=== PATIENT | male | born 1940 | race Caucasian/White ===

== ENCOUNTER 2018-05-15 06:23 | Day surgery (SDC) | payer MEDICARE, OTHER ==
[~2018-05-15 06:23] MED LIST: Lactated Ringers 1,000 ML IV ONE
[2018-05-15] MEDS ORDERED: Versed 2 MG/2 ML Injection IV ONE (06:24)
[2018-05-15] MEDS ORDERED: DIPRIVAN 200 MG/20 ML IV ONE (06:24)
[2018-05-15] MEDS ORDERED: Lactated Ringers 1,000 ML IV ONE ×2 (06:40→09:25)
[2018-05-15] MEDS ORDERED: TETRACAINE 0.5% STERI-UNIT SOL OP ONE ×2 (08:00)
[2018-05-15] MEDS ORDERED: Lactated Ringers 1,000 ML IV SCH (08:00)
[2018-05-15] MEDS ORDERED: Ak-Dilate OPHTHALMIC*** 0.71 ML, Cyclogyl 1% OPHTH SOL 5 ML 0.71 ML, GATIFLOXACIN 0.5% ... OP ONE ×4 (08:00)
[2018-05-15] MEDS ORDERED: Epinephrine Preservative Free 1 MG/ML INTRAOP ONE (09:00)
[2018-05-15] MEDS ORDERED: BETADINE 5% OPHTHALMIC 30 ML OP ONE (09:00)
[2018-05-15] MEDS ORDERED: LIDOCAINE HCL 1% AMPUL 5 ML IJ ONE (09:00)
[2018-05-15] MEDS ORDERED: BSS 500 ML, Fortaz/Tazicef 1 GM** 0.2 G IO ONE ×2 (09:00)
[2018-05-15 10:27] VITALS: BP 109/79; PULSE 69; O2SAT 99
[2018-05-15] MEDS ORDERED: ACETAZOLAMIDE 250 MG TABLET PO ONE (11:00)
[2018-05-15] MEDS ORDERED: Zofran 4 MG/2 ML VIAL IV PRN (11:00)
--- NOTE | 2018-05-16 08:59 | OP ---
DATE/TIME OF OPERATION: 05/15/2018 0916 TIME DICTATED: 1246 PREOPERATIVE DIAGNOSIS: Senile cataract of left eye. POSTOPERATIVE DIAGNOSIS: Senile cataract of left eye. SURGEON: Sheree Marcelo MD TEAM COORDINATOR: NONE OPERATION: Cataract extraction of left eye with an intraocular lens implant STANDARD __X___ COMPLEX ANESTHESIA: __X____ Monitored anesthesia care in combination with topical and intra-cameral anesthesia (because of the established specific risk of reflux, arrhythmias, or an anxiety attack associated with ocular manipulation as well as difficulty of the class a regional drivers to manage such potentially catastrophic events while simultaneously attempting to complete the surgical procedure, it was deemed necessary for the patient's safety to have an anesthesiologist or a nurse mrp controller present during the procedure whenever possible. The anesthesiologist or the nurse mrp controller was utilized to monitor and regulate the intravenous sedation of the patient, so the patient was cooperative, relaxed, and comfortable). Topical anesthesia using Tetracaine eye drops together with intra cameral anesthesia using Lidocaine 1% MPF. The nurse was utilized to monitor the patient. ANESTHESIA PROVIDER: Nikita Lewis CRNA. COMPLICATIONS: None. BLOOD LOSS: None INDICATIONS: The patient is undergoing cataract surgery in the hopes of eliminating the visual complaints and difficulty. PROCEDURE: After arriving at the facility's outpatient surgery area, an IV was started; the patient was given 5 mg of p.o. Versed. (If an anesthesia provider was not monitoring the patient) The patient was then given topical anesthetic Tetracaine eye drops. A cotton pellet was soaked into a solution of a combination of Zymaxid 0.5%, Wero-Synephrine 2.5% and Ocufen (other drops might have been substituted referenced in the patient's record). The pellet was inserted by the RN into the lower conjunctival cul-de-sac with a sterile forceps and left for 20 minutes. The pellet was then removed by the RN with a sterile forceps before taking the patient to the operating room. The preoperative area nurse identified the patient and marked the correct eye to be operated on. I identified the correct eye to be operated on and marked it appropriately in the outpatient surgery area. The patient was then taken into the operating room. Tetracaine eye drops were installed again in the correct eye. The eyelids and the lashes and the lid margins were scrubbed with Betadine solution. One drop of the diluted Betadine solution was placed in the conjunctival cul-de-sac for 45 seconds and then was irrigated. A drop of Tetracaine Gel was placed in the conjunctival cul-de-sac. The patient's forehead was taped to secure it during the procedure. The patient was monitored. The patient was then draped in the usual way for this procedure. An eye speculum was used to separate the eyelids. The eye was then fixated and a temporal 2.5 mm incision was made in the clear cornea temporally at the limbus. Through the incision, 0.25 cc of 1% non-preserved lidocaine was injected into the anterior chamber for intracameral anesthesia. The anterior chamber was then filled with viscoelastic. The pupil was small. I felt that it would be safer to mechanically dilate the pupil. A Malyugin ring was used at this point which dilated the pupil. That was removed at the end of the procedure prior to aspiration of the viscoelastic from the anterior chamber and posterior to the intraocular lens implant. The cataract had a great amount of cortical changes. That rendered seeing the anterior capsule difficult for a safe performance of an anterior capsulotomy. I injected an air bubble into the anterior chamber. I then injected 1 ML of vision blue solution into the anterior chamber. The vision blue solution was irrigated from the anterior chamber after 30 seconds. The anterior capsule was stained which facilitated performing the anterior capsulotomy safely. After that was completed, a cystotome was introduced into the anterior chamber and a round anterior capsulotomy was performed. The capsule was removed by a forceps. Hydrodissection was next carried utilizing a 25-gauge cannula and balanced salt solution to delineate the cortical material from the capsule and the nucleus from the cortical material. The nucleus was rotated freely into the capsular bag with no difficulty. The phaco tip of the [employer] Phacoemulsifier was introduced into the anterior chamber and two grooves were made into the nucleus 90 degrees apart. Using two spatulas resulted into the nucleus being fractured into four quadrants. The phaco tip was then used to remove each quadrant of the nucleus. Viscoelastic was used during this process to protect the corneal endothelium. Once the entire nucleus was removed, the phaco tip then was removed and the irrigation tip was introduced into the eye and the cortex was removed. The posterior capsule was polished. It was noticed that there was a tear into the posterior capsule with few vitreous strands into the pupil plan. An anterior vitrectomy was performed. A 22.00 diopter, [id number], posterior chamber lens implant, was inspected and found to be grossly normal. The implant was inserted into the implant injector cartridge; Viscoelastic again was introduced into the anterior chamber, which filled the capsular bag. The implant injector's cartridge tip was placed at the limbal wound and the posterior chamber implant was released into the capsular bag and rotated appropriately. The implant was found to be into the capsular bag and it was centered. __X___ 0.2 ml of Tri-Moxi was introduced via 27 gauge cannula into the vitreous cavity through the ciliary processes. Viscoelastic was aspirated from the anterior chamber and posterior to the intraocular lens implant from the capsular bag using the irrigating tip. The anterior chamber was irrigated and filled with 5 cc antibiotic solution (500 cc of BSS plus 2 ml of Fortaz 100 mg/ml) ( if patient was not allergic to the medication). The lips of the corneal incision were hydrated using BSS solution. The anterior chamber was checked and found to be water tight. One drop each of antibiotic, steroid and NSAID drops (refer to chart for drops used) were placed in the conjunctival cul-de-sac of the operated eye. Patient tolerated the procedure quite well and left the operating room in satisfactory condition. DISCHARGE SUMMARY: The patient was released in stable condition. The patient and those with the patient were given an instruction sheet as of how to care for the eye after surgery as well as counseling on any abnormal laboratory studies by the postoperative RN. The patient was also given an appointment card for follow-up in the office and is to call immediately for any difficulties including but not limited to pain in the eye, decreased vision, discharge from the eye, headache and or fever. DISCHARGE DIAGNOSIS: Pseudophakia of left eye
== END 2018-05-15 10:43 | disposition home or self-care (01) ==
LOC: SDC 06:23
PROVIDERS: ATTEND Ophthalmology
DX: H25.9 Unspecified age-related cataract (principal); H04.129 Dry eye syndrome of unspecified lacrimal gland; K21.9 Gastro-esophageal reflux disease without esophagitis; H40.1190 Primary open-angle glaucoma, unspecified eye, stage unspecified; Z79.899 Other long term (current) drug therapy
CPT/HCPCS: 66984; C1780; 99100; J0171; J2250; J2704; A9270-GY

== ENCOUNTER 2020-07-19 17:11 | Observation (INO) | payer MEDICARE, OTHER ==
--- NOTE | 2020-07-19 17:15 | ERPHSYRPT ---
- History of Present Illness Time Seen by Provider: 07/19/20 17:14 Historian: patient Exam Limitations: no limitations Physician History: The patient is an 80-year-old male with a past medical history significant for hypertension and diabetes mellitus presents with a chief complaint of chest pain. Onset was around 12:00 PM this afternoon. He states he has had episodes of chest pain off and on for the past 1 to 2 months that seem to be correlated with eating food and sometimes will just come on spontaneously and resolve on their own spontaneously. He reportedly discussed initiating lunch when he fell with a squeeze sensation in his mid sternum that radiated to the middle of his back. The pain is constant mild and was reportedly not associated with shortness of b reath, diaphoresis, nausea, vomiting, paler dizziness or lightheadedness. He reportedly has not followed up with a italian tutor or primary care provider for this pain nor has he had any outpatient testing for coronary artery disease. Timing/Duration: today Quality: pressure, tightness Location: substernal Chest Pain Radiation: back Severity of Pain-Max: mild Severity of Pain-Current: mild Associated Symptoms: No nausea, No vomiting, No palpitations, No heartburn, No abdominal pain, No diaphoresis, No syncope Nitro Today/Relief: no nitro taken today Aspirin Treatment Today: no aspirin today Allergies/Adverse Reactions: latex Adverse Reaction (Intermediate, Verified 07/19/20 17:20) Swelling Home Medications: Albuterol Sulfate [Ventolin Hfa] 2 puffs IH Q4H PRN PRN 05/01/18 [History] Cetirizine HCl [Zyrtec] 1 tab PO DAILY 05/01/18 [History] Triamterene/Hydrochlorothiazid [Triamterene-Hctz 37.5-25 mg Cp] 1 tab PO DAILY 05/01/18 [History] Aspirin 81 mg PO BID 05/11/18 [History] Hydrocodone/Acetaminophen [[place]et[place] 7.5-325 Tablet] 1 each PO Q4H PRN PRN 05/11/18 [History] Insulin NPH Human Isophane [Humulin N] 100 unit SQ DAILY 05/11/18 [History] Insulin Regular, Human [Novolin R] 12 unit IJ BIDAC 05/11/18 [History] Ondansetron HCl [Zofran] 8 mg PO Q8HPRN PRN 05/11/18 [History] Oxycodone HCl/Acetaminophen [Percocet 7.5-325 mg Tablet] 1 each PO Q4HPRN PRN 05/11/18 [History] Sertraline HCl [Zoloft] 200 mg PO DAILY 05/11/18 [History] Tamsulosin HCl 0.4 mg [Flomax 0.4 MG] 0.4 mg PO DAILY 05/11/18 [History] raNITIdine HCL [Ranitidine HCl] 150 mg PO DAILY 05/11/18 [History] Travel Risk - International Travel Have you traveled outside of the country in past 3 weeks: No - Coronavirus Screening Are you exhibiting any of the following symptoms?: No - Review of Systems Constitutional: No Symptoms Eyes: No Symptoms Ears, Nose, & Throat: No Symptoms Cardiac: Chest Pain Abdominal/Gastrointestinal: No Symptoms, No Nausea, No Vomiting Genitourinary Symptoms: No Symptoms Musculoskeletal: No Symptoms Skin: No Symptoms Neurological: No Symptoms Psychological: No Symptoms Endocrine: No Symptoms Hematologic/Lymphatic: No Symptoms Immunological/Allergic: No Symptoms - Past Medical History Pertinent Past Medical History: No Neurological History: No Pertinent History ENT History: Cataracts Cardiac History: No Pertinent History Respiratory History: Bronchitis Endocrine Medical History: Diabetes Type II Musculoskeletal History: No Pertinent History GI Medical History: No Pertinent History History: No Pertinent History Psycho-Social History: No Pertinent History Male Reproductive Disorders: Other - Past Surgical History Past Surgical History: Yes Neuro Surgical History: No Pertinent History Cardiac: No Pertinent History Respiratory: No Pertinent History Gastrointestinal: Hernia Repair Genitourinary: No Pertinent History Musculoskeletal: Joint Replacement, Orthopedic Surgery Male Surgical History: Testicular Surgery Other Surgical History: 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, carpal tunnel bilaterally repaired, testical removed related to hernia surgery - Social History Smoking Status: Never smoker Exposure to second hand smoke: No Drug Use: none - Nursing Vital Signs Nursing Vital Signs: Initial Vital Signs Temperature 98.0 F 07/19/20 17:12 Pulse Rate 68 07/19/20 17:12 Respiratory Rate 17 07/19/20 17:12 Blood Pressure 134/62 07/19/20 17:12 O2 Sat by Pulse Oximetry 96 07/19/20 17:12 Pain Scale Pain Intensity 5 - Physical Exam General Appearance: no apparent distress, alert, obese Eye Exam: PERRL/EOMI, eyes nml inspection, No scleral icterus, No pale conjunctivae Ears, Nose, Throat Exam: normal ENT inspection, pharynx normal, moist mucous membranes, No pharyngeal erythema, No tonsillar exudate Neck Exam: normal inspection, non-tender, supple Respiratory Exam: normal breath sounds, lungs clear, No respiratory distress Cardiovascular Exam: regular rate/rhythm, normal heart sounds, normal peripheral pulses, No capillary refill <2 sec, No edema, No pulse deficit Gastrointestinal/Abdomen Exam: soft, distention, No tenderness, No mass, No guarding Male Genitalia Exam: normal genitalia Rectal Exam: deferred Back Exam: normal inspection Extremity Exam: normal inspection Neurologic Exam: alert, oriented x 3, cooperative Skin Exam: normal color, warm, dry, No rash, No petechiae, No jaundice Lymphatic Exam: adenopathy SpO2 Interpretation: normal O2 Delivery: Room Air - Course Nursing assessment & vital signs reviewed: Yes EKG Interpreted by Me: RATE, Left [place] Deviation, Other (No evidence of STEMI or acute myocardial ischemia pattern. Sinus rhythm, vent rate 73 bpm, NE interval 173 ms, QRS duration 97 ms, QT/QTc 372/412 ms) - Radiology Exams Chest X-ray Interpretation: Interpreted by me, Reviewed by me, Negative (Awaiting formal radiology review) Ordered Tests: Active Orders 24 hr Category Date Time Status Bedrest with BRP/BSC ROUTINE Activity 07/19/20 19:05 Active [employer] Transactions Attorney STAT Care 07/19/20 17:14 Active Code Status Order ROUTINE Care 07/19/20 19:05 Active EKG-ER Only STAT Care 07/19/20 17:14 Active IV Care Q6H Care 07/19/20 19:05 Active IV Insertion STAT Care 07/19/20 17:14 Active Implement Chest Pain Pathway ROUTINE Care 07/19/20 19:[address] in Observation ROUTINE Care 07/19/20 19:05 Active Pulse Oximetry (ED) STAT Care 07/19/20 17:14 Active Eligio Gómez, Apply ROUTINE Care 07/19/20 19:05 Active Telemetry q4h Care 07/19/20 19:05 Active Weight,Daily 0600 Care 07/19/20 19:05 Active Low Sodium (1.5-2gram Sodium) Diet 07/20/20 Breakfast Active CHEST 2 VIEWS (PA AND LAT) DAILY Exams 07/20/20 06:00 Ordered CHEST 2 VIEWS (PA AND LAT) Stat Exams 07/19/20 18:09 Taken BMP Stat Lab 07/19/20 17:28 Completed CBC AM.LAB Lab 07/20/20 04:00 Ordered CBC W DIFF Stat Lab 07/19/20 17:28 Completed LIPID PROFILE AM.LAB Lab 07/20/20 04:00 Ordered NT PRO BNP Stat Lab 07/19/20 17:28 Completed TROPONIN Q3H Lab 07/19/20 17:28 Completed TROPONIN Q3H Lab 07/19/20 20:20 Received TROPONIN Q3H Lab 07/19/20 23:15 Ordered TROPONIN Q3H Lab 07/20/20 02:15 Ordered TROPONIN Q3H Lab 07/20/20 05:15 Ordered EKG Q8HX2,QAMX3,PRN RT 07/19/20 19:05 Active Pulse Oximetry Q4H RT 07/19/20 19:05 Active Medication Summary Generic Name Dose Route Start Last Admin Trade Name Freq PRN Reason Stop Dose Admin Acetaminophen 650 mg 07/19/20 19:05 Tylenol 325 Mg PO 08/18/20 19:04 Q4H PRN PRN PAIN AND/OR FEVER Aspirin 81 mg 07/20/20 10:00 Baby Aspirin 81 Mg Chew PO 08/19/20 09:59 QAM COLBY Nitroglycerin 1 gm 07/19/20 22:00 07/19/20 18:56 Nitro-Bid 2% Ud Packets TOP 08/18/20 21:59 1 gm Q12HT COLBY Administration Nitroglycerin 1 gm 07/19/20 22:00 Nitro-Bid 2% Ud Packets TOP 08/18/20 21:59 Q8HT COLBY Ondansetron HCl 4 mg 07/19/20 19:05 Zofran 4 Mg/2 Ml Vial IV 08/18/20 19:04 Q4H PRN PRN NAUSEA/VOMITING Senna/Docusate Sodium 2 udtab 07/19/20 19:05 Senokot-S Tablet PO 08/18/20 19:04 BID PRN PRN CONSTIPATION Discontinued Medications Generic Name Dose Route Start Last Admin Trade Name Freq PRN Reason Stop Dose Admin Aspirin 324 mg 07/19/20 17:39 07/19/20 17:58 Baby Aspirin 81 Mg Chew PO 07/19/20 17:40 324 mg STAT ONE Administration Aspirin Confirm 07/19/20 17:57 Baby Aspirin 81 Mg Chew Administered 07/19/20 17:58 Dose 324 mg .ROUTE .STK-MED ONE Nitroglycerin 0.4 mg 07/19/20 17:39 07/19/20 18:00 Nitrostat 0.4 Mg (Ed) SL 07/19/20 17:40 0.4 mg STAT ONE Administration Nitroglycerin Confirm 07/19/20 17:57 Nitrostat 0.4 Mg (Ed) Administered 07/19/20 17:58 Dose 0.4 mg SL .STK-MED ONE Lab/Rad Data: Laboratory Result Diagrams 07/19/20 17:28 07/19/20 17:28 Laboratory Results 07/19/20 07/19/20 07/19/20 Range/Units 17:28 17:28 17:28 WBC 10.2 (4.0-10.5) K/mm3 RBC 4.16 (4.1-5.6) M/mm3 Hgb 13.1 (12.5-18.0) gm/dl Hct 39.5 L (42-50) % MCV 95.0 (78-100) fl MCH 31.5 (26-32) pg MCHC 33.2 (32-36) g/dl RDW 13.4 (11.5-14.0) % Plt Count 160 (150-450) K/mm3 MPV 9.4 (7.5-11.0) fl Gran % 78.4 H (36.0-66.0) % Eos # (Auto) 0.13 (0-0.5) Absolute Lymphs (auto) 1.45 (1.0-4.6) Absolute Monos (auto) 0.60 (0.0-1.3) Lymphocytes % 14.2 L (24.0-44.0) % Monocytes % 5.9 (0.0-12.0) % Eosinophils % 1.3 (0.00-5.0) % Basophils % 0.2 (0.0-0.4) % Absolute Granulocytes 8.03 H (1.4-6.9) Basophils # 0.02 (0-0.4) Sodium 137 (137-145) mmol/L Potassium 4.3 (3.5-5.1) mmol/L Chloride 105 (98-107) mmol/L Carbon Dioxide 25 (22-30) mmol/L Anion Gap 11.4 (5-15) MEQ/L BUN 25 H (9-20) mg/dL Creatinine 0.84 (0.66-1.25) mg/dL Estimated GFR > 60.0 ML/MIN Glucose 106 (74-106) mg/dL Calcium 9.0 (8.4-10.2) mg/dL Troponin I < 0.012 (0.000-0.034) ng/mL NT-Pro-B Natriuret Pep 52.5 (0-1800) pg/mL - Progress Progress: improved Air Movement: good Progress Note: 07/19/20 19:[address] Ledezma and discussed the case with him. He agreed to admit for CP r/o requested cardiolyte stress test for the morning, serial cardiac enzymes, CBC, BMP, and CXR for the morning. 07/19/20 20:36 Nontoxic in appearance. The patient presents with a chief complaint of chest pain. His pain was relieved with a single nitroglycerin and he received 324 mg of baby aspirin in the emergency department. Nitroglycerin paste was subsequently administered. Labs to include cardiac markers were relatively benign and his chest x-ray is reviewed and showed no evidence of pneumonia, pneumothorax, pleural effusion but appeared to have some mild cardiomegaly but currently awaiting formal radiology review. I have a low suspicion for PE at this time and therefore d-dimer in addition to a CTA was deferred. His chest pain is concerning for potential angina but also in the differential includes GERD, esophageal spasm, or hiatal hernia. Given that the patient has had no c ardiac work-up in the past to my knowledge she will be admitted to the hospital to undergo serial troponins in addition to a Cardiolite stress test per Dr. Ledezma's instructions. Patient remained hemodynamically stable in the emergency department and chest pain-free by the time he went to the floor. Discussed with : Chandni - Departure Departure Disposition: Observation Clinical Impression: Chest pain Condition: Stable Critical Care Time: No Referrals: AMPARO LOMBARDO MD [Primary Care Provider] -
[2020-07-19 17:31] LABS: Absolute Neutrophil Ct (ANC) 8.03 (1.4-6.9); BASOPHIL % 0.2 % (0.0-0.4); Basophil (Absolute #) 0.02 (0-0.4); Eosinophil % 1.3 % (0.00-5.0); Eosinophil (Absolute #) 0.13 (0-0.5); Hematocrit 39.5 % (42-50); Hemoglobin 13.1 gm/dl (12.5-18.0); Lymphocyte (Absolute #) 1.45 (1.0-4.6); Lymphocytes % 14.2 % (24.0-44.0); Mean Corpuscular Hemoglobin 31.5 pg (26-32); Mean Corpuscular Hgb Concent. 33.2 g/dl (32-36); Mean Platelet Volume 9.4 fl (7.5-11.0); Monocytes % 5.9 % (0.0-12.0); Neutrophil % 78.4 % (36.0-66.0); Platelet Count 160 K/mm3 (150-450); Red Blood Count 4.16 M/mm3 (4.1-5.6); Red Cell Distribution Width 13.4 % (11.5-14.0); White Blood Count 10.2 K/mm3 (4.0-10.5)
[2020-07-19] MEDS ORDERED: Nitrostat 0.4 MG (ED) SL ONE ×2 (17:39→17:57)
[2020-07-19] MEDS ORDERED: BABY ASPIRIN 81 MG CHEW PO ONE (17:39)
[2020-07-19 17:55] LABS: ANION GAP 11.4 MEQ/L (5-15); BLOOD UREA NITROGEN 25 mg/dL (9-20); CHLORIDE 105 mmol/L (98-107); Carbon Dioxide 25 mmol/L (22-30); Creatinine 1 0.84 mg/dL (0.66-1.25); EST GLOMERULAR FILTRATION RATE > 60.0 ML/MIN; Glucose 106 mg/dL (74-106); NT PRO BNP 52.5 pg/mL (0-1800); Potassium 4.3 mmol/L (3.5-5.1); SODIUM 137 mmol/L (137-145)
[2020-07-19] MEDS ORDERED: BABY ASPIRIN 81 MG CHEW ONE (17:57)
[2020-07-19] MEDS: NITRO-BID 2% UD PACKETS TOP SCH ×3 (18:56→22:52)
[2020-07-19] MEDS ORDERED: NITRO-BID 2% UD PACKETS ONE (18:56)
[2020-07-19] MEDS ORDERED: TYLENOL 325 MG PO PRN (19:05)
[2020-07-19] MEDS ORDERED: Senokot-S Tablet PO PRN (19:05)
[2020-07-19] MEDS ORDERED: Zofran 4 MG/2 ML VIAL IV PRN (19:05)
[2020-07-19] MEDS ORDERED: Lantus Insulin SQ SCH (22:15)
[2020-07-19] MEDS ORDERED: ZOFRAN ODT 4 MG PO PRN (22:16)
[2020-07-19] MEDS ORDERED: PERCOCET TABLET 5/325MG PO PRN (22:18)
[2020-07-20 05:44] LABS: Hemoglobin 13.1 gm/dl (12.5-18.0); Mean Cell Volume 96.9 fl (78-100); Mean Platelet Volume 9.7 fl (7.5-11.0); Platelet Count 180 K/mm3 (150-450); Red Blood Count 4.23 M/mm3 (4.1-5.6); Red Cell Distribution Width 13.6 % (11.5-14.0)
[2020-07-20 06:11] LABS: ANION GAP 9.1 MEQ/L (5-15); BLOOD UREA NITROGEN 22 mg/dL (9-20); CHLORIDE 107 mmol/L (98-107); Calcium 8.9 mg/dL (8.4-10.2); Carbon Dioxide 26 mmol/L (22-30); Cholesterol 145 mg/dL (50-200); Creatinine 1 0.85 mg/dL (0.66-1.25); EST GLOMERULAR FILTRATION RATE > 60.0 ML/MIN; Glucose 91 mg/dL (74-106); HDL CHOLESTEROL 27 mg/dL (40-60); LDL, DIRECT 95 mg/dL (30-100); Potassium 4.2 mmol/L (3.5-5.1); Risk Ratio 5.4; SODIUM 138 mmol/L (137-145); TRIGLYCERIDE 176 mg/dL (30-150)
[2020-07-20] MEDS: NITRO-BID 2% UD PACKETS TOP SCH (07:24)
--- NOTE | 2020-07-20 09:08 | XRAY ---
Indication: Chest pain. Comparison: None PA/lateral chest hyperinflated and clear with incidental right base calcified granuloma. Heart is not enlarged. Bony thorax intact with mild osteopenia and degenerative flowing osteophytes throughout the spine. Impression: Nonacute chest with chronic features.
--- NOTE | 2020-07-20 09:08 | XRAY ---
Indication: Chest pain. Comparison: One day earlier. PA/lateral chest unchanged again hyperinflated and clear with incidental right lung calcified granuloma. Heart and mediastinal structures within normal limits. No new/acute findings.
[2020-07-20] MEDS ORDERED: BABY ASPIRIN 81 MG CHEW PO SCH (10:00)
[2020-07-20] MEDS ORDERED: ECOTRIN 81 MG PO SCH (10:00)
--- NOTE | 2020-07-20 11:28 | PCM.SSS ---
History of Present Illness - Chief Complaint Chief Complaint: chest pain Date: 07/20/20 History of Present Illness: is a 80 year old male, presented to ER with complaints of intermittent chest pain and reflux for the past several months, he notes he has been undergoing evaluation with his pcp in [place] for a few months at this time, noting holter moniter, ECHO and Chemical stress cardiolyte all in the past few months, he reports he has not seen cardiology but has no desire to do so at this time. - Review of Systems Constitutional: No Fever, No Chills Eyes: No Symptoms Ears, Nose, & Throat: No Symptoms Respiratory: No Cough, No Short Of Breath Cardiac: Chest Pain (not at this time), No Edema, No Syncope Abdominal/Gastrointestinal: No Abdominal Pain, No Nausea, No Vomiting, No Diar jc Genitourinary Symptoms: No Dysuria Musculoskeletal: No Back Pain, No Neck Pain Skin: No Rash Neurological: No Dizziness, No Focal Weakness, No Sensory Changes Psychological: No Symptoms Endocrine: No Symptoms Hematologic/Lymphatic: No Symptoms Immunological/Allergic: No Symptoms Medications & Allergies Home Medications: Home Medication List Albuterol Sulfate [Ventolin Hfa] 2 puffs IH Q4H PRN PRN 05/01/18 [History Confirmed 07/19/20] Cetirizine HCl [Zyrtec] 1 tab PO DAILY 05/01/18 [History Confirmed 07/19/20] Triamterene/Hydrochlorothiazid [Triamterene-Hctz 37.5-25 mg Cp] 1 tab PO DAILY 05/01/18 [History Confirmed 07/19/20] Aspirin 81 mg PO DAILY 05/11/18 [History Confirmed 07/19/20] Insulin Regular, Human [Novolin R] 5 unit IJ BIDAC 05/11/18 [History Confirmed 07/19/20] Ondansetron HCl [Zofran] 8 mg PO Q8HPRN PRN 05/11/18 [History Confirmed 07/19/20] Oxycodone HCl/Acetaminophen [Percocet 7.5-325 mg Tablet] 7.5 each PO Q4HPRN PRN 05/11/18 [History Confirmed 07/19/20] Sertraline HCl [Zoloft] 200 mg PO DAILY 05/11/18 [History Confirmed 07/19/20] Tamsulosin HCl 0.4 mg [Flomax 0.4 MG] 0.4 mg PO DAILY 05/11/18 [History Confirmed 07/19/20] Insulin Glargine,Hum.rec.anlog [Lantus] 70 unit SQ HS 07/19/20 [History Confirmed 07/19/20] Allergies/Adverse Reactions: Allergies Allergy/AdvReac Type Severity Reaction Status Date / Time latex AdvReac Intermediate Swelling Verified 07/19/20 17:20 - Past Medical History Past Medical History: No Neurological History: No Pertinent History ENT History: Cataracts Cardiac History: No Pertinent History Respiratory History: Bronchitis Endocrine Medical History: Diabetes Type II Musculoskelatal History: No Pertinent History GI Medical History: No Pertinent History History: No Pertinent History Pyscho-Social History: No Pertinent History Male Reproductive Disorders: Other - Past Surgical History Past Surgical History: Yes Neuro Surgical History: No Pertinent History Cardiac History: No Pertinent History Respiratory Surgery: No Pertinent History GI Surgical History: Hernia Repair Genitourinary Surgical Hx: No Pertinent History Musculskeletal Surgical Hx: Joint Replacement, Orthopedic Surgery Male Surgical History: Testicular Surgery Other Surgical History: 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, carpal tunnel bilaterally repaired, testical removed related to hernia surgery - Social History Smoking Status: Never smoker Exposure to second hand smoke: No Alcohol: None Drug Use: none - Physical Exam Vital Signs: Vital Signs - 24 hr Temp Pulse Resp BP Pulse Ox 07/20/20 10:53 94 L 07/20/20 10:34 92 L 07/20/20 10:30 94 L 07/20/20 08:00 97.6 F 67 15 113/57 95 07/20/20 06:44 95 07/20/20 04:00 98.1 F 67 16 128/71 95 07/20/20 00:00 98.6 F 62 16 137/62 96 07/19/20 23:15 97 07/19/20 22:09 98.1 F 66 15 121/73 97 07/19/20 20:57 65 15 107/60 97 07/19/20 19:05 61 16 112/53 95 07/19/20 18:16 67 14 112/53 95 07/19/20 17:27 95 07/19/20 17:12 98.0 F 68 17 134/62 96 General Appearance: no apparent distress, alert Neurologic Exam: alert, oriented x 3, cooperative, normal mood/affect, nml cerebellar function, nml station & gait, sensation nml, No motor deficits Eye Exam: PERRL/EOMI, eyes nml inspection Ears, Nose, Throat Exam: normal ENT inspection, TMs normal, pharynx normal, moist mucous membranes Neck Exam: normal inspection, non-tender, supple, full range of motion Respiratory Exam: normal breath sounds, lungs clear, No respiratory distress Cardiovascular Exam: regular rate/rhythm, normal heart sounds, normal peripheral pulses Gastrointestinal/Abdomen Exam: soft, normal bowel sounds, No tenderness, No mass Back Exam: normal inspection, normal range of motion, No CVA tenderness, No vertebral tenderness Extremity Exam: normal inspection, normal range of motion, pelvis stable Skin Exam: normal color, warm, dry, No rash Lymphatic Exam: No adenopathy Results - Labs Lab/Micro Results: Accuchecks Date 07/20/20 Time 07:30 Accucheck Value: 91 Lab Results-Last 24 Hours 07/19/20 07/19/20 07/19/20 Range/Units 11:10 17:28 17:28 WBC 10.2 (4.0-10.5) K/mm3 RBC 4.16 (4.1-5.6) M/mm3 Hgb 13.1 (12.5-18.0) gm/dl Hct 39.5 L (42-50) % MCV 95.0 (78-100) fl MCH 31.5 (26-32) pg MCHC 33.2 (32-36) g/dl RDW 13.4 (11.5-14.0) % Plt Count 160 (150-450) K/mm3 MPV 9.4 (7.5-11.0) fl Gran % 78.4 H (36.0-66.0) % Eos # (Auto) 0.13 (0-0.5) Absolute Lymphs (auto) 1.45 (1.0-4.6) Absolute Monos (auto) 0.60 (0.0-1.3) Lymphocytes % 14.2 L (24.0-44.0) % Monocytes % 5.9 (0.0-12.0) % Eosinophils % 1.3 (0.00-5.0) % Basophils % 0.2 (0.0-0.4) % Absolute Granulocytes 8.03 H (1.4-6.9) Basophils # 0.02 (0-0.4) Sodium 137 (137-145) mmol/L Potassium 4.3 (3.5-5.1) mmol/L Chloride 105 (98-107) mmol/L Carbon Dioxide 25 (22-30) mmol/L Anion Gap 11.4 (5-15) MEQ/L BUN 25 H (9-20) mg/dL Creatinine 0.84 (0.66-1.25) mg/dL Estimated GFR > 60.0 ML/MIN Glucose 106 (74-106) mg/dL Calcium 9.0 (8.4-10.2) mg/dL Troponin I < 0.012 (0.000-0.034) ng/mL NT-Pro-B Natriuret Pep 52.5 (0-1800) pg/mL Triglycerides (30-150) mg/dL Cholesterol (50-200) mg/dL LDL Cholesterol (30-100) mg/dL HDL Cholesterol (40-60) mg/dL Heart Disease Risk Ratio 07/19/20 07/19/20 07/20/20 Range/Units 17:28 20:20 02:59 WBC (4.0-10.5) K/mm3 RBC (4.1-5.6) M/mm3 Hgb (12.5-18.0) gm/dl Hct (42-50) % MCV (78-100) fl MCH (26-32) pg MCHC (32-36) g/dl RDW (11.5-14.0) % Plt Count (150-450) K/mm3 MPV (7.5-11.0) fl Gran % (36.0-66.0) % Eos # (Auto) (0-0.5) Absolute Lymphs (auto) (1.0-4.6) Absolute Monos (auto) (0.0-1.3) Lymphocytes % (24.0-44.0) % Monocytes % (0.0-12.0) % Eosinophils % (0.00-5.0) % Basophils % (0.0-0.4) % Absolute Granulocytes (1.4-6.9) Basophils # (0-0.4) Sodium (137-145) mmol/L Potassium (3.5-5.1) mmol/L Chloride (98-107) mmol/L Carbon Dioxide (22-30) mmol/L Anion Gap (5-15) MEQ/L BUN (9-20) mg/dL Creatinine (0.66-1.25) mg/dL Estimated GFR ML/MIN Glucose (74-106) mg/dL Calcium (8.4-10.2) mg/dL Troponin I < 0.012 < 0.012 < 0.012 (0.000-0.034) ng/mL NT-Pro-B Natriuret Pep (0-1800) pg/mL Triglycerides (30-150) mg/dL Cholesterol (50-200) mg/dL LDL Cholesterol (30-100) mg/dL HDL Cholesterol (40-60) mg/dL Heart Disease Risk Ratio 07/20/20 07/20/20 07/20/20 Range/Units 04:40 04:40 04:40 WBC 10.0 (4.0-10.5) K/mm3 RBC 4.23 (4.1-5.6) M/mm3 Hgb 13.1 (12.5-18.0) gm/dl Hct 41.0 L (42-50) % MCV 96.9 (78-100) fl MCH 31.0 (26-32) pg MCHC 32.0 (32-36) g/dl RDW 13.6 (11.5-14.0) % Plt Count 180 (150-450) K/mm3 MPV 9.7 (7.5-11.0) fl Gran % (36.0-66.0) % Eos # (Auto) (0-0.5) Absolute Lymphs (auto) (1.0-4.6) Absolute Monos (auto) (0.0-1.3) Lymphocytes % (24.0-44.0) % Monocytes % (0.0-12.0) % Eosinophils % (0.00-5.0) % Basophils % (0.0-0.4) % Absolute Granulocytes (1.4-6.9) Basophils # (0-0.4) Sodium 138 (137-145) mmol/L Potassium 4.2 (3.5-5.1) mmol/L Chloride 107 (98-107) mmol/L Carbon Dioxide 26 (22-30) mmol/L Anion Gap 9.1 (5-15) MEQ/L BUN 22 H (9-20) mg/dL Creatinine 0.85 (0.66-1.25) mg/dL Estimated GFR > 60.0 ML/MIN Glucose 91 (74-106) mg/dL Calcium 8.9 (8.4-10.2) mg/dL Troponin I < 0.012 (0.000-0.034) ng/mL NT-Pro-B Natriuret Pep (0-1800) pg/mL Triglycerides 176 H (30-150) mg/dL Cholesterol 145 (50-200) mg/dL LDL Cholesterol 95 (30-100) mg/dL HDL Cholesterol 27 L (40-60) mg/dL Heart Disease Risk Ratio 5.4 Accuchecks Date 07/20/20 Time 07:30 Accucheck Value: 91 - Radiology Impressions Radiology Exams & Impressions: Radiology Procedures Category Date Time Status CHEST 2 VIEWS (PA AND LAT) DAILY Exams 07/20/20 06:00 Completed CHEST 2 VIEWS (PA AND LAT) Stat Exams 07/19/20 18:09 Completed - Other Procedures and Tests Respiratory Therapy 07/19/20 23:15 Oxygen Nasal Cannula 2 lpm 07/21/20 05:00 EKG DAILY 07/22/20 05:00 EKG DAILY 07/23/20 05:00 EKG DAILY Assessment/Plan (1) Chest pain Current Visit: Yes Status: Acute Code(s): R07.9 - CHEST PAIN, UNSPECIFIED Hospital Summary - Hospital Course Hospital Course: Pt. admitted to telemetry with serial cardiac markers were negative for changes. Pt. notes he has had several tests done in the past few months, and does not desire to repeat them or have follow-up with cardiology arranged at this time. Pt. has no further complaints warranting hospitalization and will be discharged to home with follow-up with his pcp. - Vitals & Intake/Output Vital Signs: Vital Signs Temperature 97.6 F 07/20/20 08:00 Pulse Rate 67 07/20/20 08:00 Respiratory Rate 15 07/20/20 08:00 Blood Pressure 113/57 07/20/20 08:00 O2 Sat by Pulse Oximetry 94 L 07/20/20 10:53 Intake & Output: Intake & Output 07/17/20 07/18/20 07/19/20 08/24/20 11:59 11:59 11:59 11:59 Intake Total 360 Output Total 1225 Balance -865 Weight 107.9 kg - Lab Result Diagrams: 07/20/20 04:40 07/20/20 04:40 Lab Results-Last 24 Hrs: Accuchecks Date 07/20/20 Time 07:30 Accucheck Value: 91 Lab Results-Last 24 Hours 07/19/20 07/19/20 07/19/20 Range/Units 11:10 17:28 17:28 WBC 10.2 (4.0-10.5) K/mm3 RBC 4.16 (4.1-5.6) M/mm3 Hgb 13.1 (12.5-18.0) gm/dl Hct 39.5 L (42-50) % MCV 95.0 (78-100) fl MCH 31.5 (26-32) pg MCHC 33.2 (32-36) g/dl RDW 13.4 (11.5-14.0) % Plt Count 160 (150-450) K/mm3 MPV 9.4 (7.5-11.0) fl Gran % 78.4 H (36.0-66.0) % Eos # (Auto) 0.13 (0-0.5) Absolute Lymphs (auto) 1.45 (1.0-4.6) Absolute Monos (auto) 0.60 (0.0-1.3) Lymphocytes % 14.2 L (24.0-44.0) % Monocytes % 5.9 (0.0-12.0) % Eosinophils % 1.3 (0.00-5.0) % Basophils % 0.2 (0.0-0.4) % Absolute Granulocytes 8.03 H (1.4-6.9) Basophils # 0.02 (0-0.4) Sodium 137 (137-145) mmol/L Potassium 4.3 (3.5-5.1) mmol/L Chloride 105 (98-107) mmol/L Carbon Dioxide 25 (22-30) mmol/L Anion Gap 11.4 (5-15) MEQ/L BUN 25 H (9-20) mg/dL Creatinine 0.84 (0.66-1.25) mg/dL Estimated GFR > 60.0 ML/MIN Glucose 106 (74-106) mg/dL Calcium 9.0 (8.4-10.2) mg/dL Troponin I < 0.012 (0.000-0.034) ng/mL NT-Pro-B Natriuret Pep 52.5 (0-1800) pg/mL Triglycerides (30-150) mg/dL Cholesterol (50-200) mg/dL LDL Cholesterol (30-100) mg/dL HDL Cholesterol (40-60) mg/dL Heart Disease Risk Ratio 07/19/20 07/19/20 07/20/20 Range/Units 17:28 20:20 02:59 WBC (4.0-10.5) K/mm3 RBC (4.1-5.6) M/mm3 Hgb (12.5-18.0) gm/dl Hct (42-50) % MCV (78-100) fl MCH (26-32) pg MCHC (32-36) g/dl RDW (11.5-14.0) % Plt Count (150-450) K/mm3 MPV (7.5-11.0) fl Gran % (36.0-66.0) % Eos # (Auto) (0-0.5) Absolute Lymphs (auto) (1.0-4.6) Absolute Monos (auto) (0.0-1.3) Lymphocytes % (24.0-44.0) % Monocytes % (0.0-12.0) % Eosinophils % (0.00-5.0) % Basophils % (0.0-0.4) % Absolute Granulocytes (1.4-6.9) Basophils # (0-0.4) Sodium (137-145) mmol/L Potassium (3.5-5.1) mmol/L Chloride (98-107) mmol/L Carbon Dioxide (22-30) mmol/L Anion Gap (5-15) MEQ/L BUN (9-20) mg/dL Creatinine (0.66-1.25) mg/dL Estimated GFR ML/MIN Glucose (74-106) mg/dL Calcium (8.4-10.2) mg/dL Troponin I < 0.012 < 0.012 < 0.012 (0.000-0.034) ng/mL NT-Pro-B Natriuret Pep (0-1800) pg/mL Triglycerides (30-150) mg/dL Cholesterol (50-200) mg/dL LDL Cholesterol (30-100) mg/dL HDL Cholesterol (40-60) mg/dL Heart Disease Risk Ratio 07/20/20 07/20/20 07/20/20 Range/Units 04:40 04:40 04:40 WBC 10.0 (4.0-10.5) K/mm3 RBC 4.23 (4.1-5.6) M/mm3 Hgb 13.1 (12.5-18.0) gm/dl Hct 41.0 L (42-50) % MCV 96.9 (78-100) fl MCH 31.0 (26-32) pg MCHC 32.0 (32-36) g/dl RDW 13.6 (11.5-14.0) % Plt Count 180 (150-450) K/mm3 MPV 9.7 (7.5-11.0) fl Gran % (36.0-66.0) % Eos # (Auto) (0-0.5) Absolute Lymphs (auto) (1.0-4.6) Absolute Monos (auto) (0.0-1.3) Lymphocytes % (24.0-44.0) % Monocytes % (0.0-12.0) % Eosinophils % (0.00-5.0) % Basophils % (0.0-0.4) % Absolute Granulocytes (1.4-6.9) Basophils # (0-0.4) Sodium 138 (137-145) mmol/L Potassium 4.2 (3.5-5.1) mmol/L Chloride 107 (98-107) mmol/L Carbon Dioxide 26 (22-30) mmol/L Anion Gap 9.1 (5-15) MEQ/L BUN 22 H (9-20) mg/dL Creatinine 0.85 (0.66-1.25) mg/dL Estimated GFR > 60.0 ML/MIN Glucose 91 (74-106) mg/dL Calcium 8.9 (8.4-10.2) mg/dL Troponin I < 0.012 (0.000-0.034) ng/mL NT-Pro-B Natriuret Pep (0-1800) pg/mL Triglycerides 176 H (30-150) mg/dL Cholesterol 145 (50-200) mg/dL LDL Cholesterol 95 (30-100) mg/dL HDL Cholesterol 27 L (40-60) mg/dL Heart Disease Risk Ratio 5.4 Micro Results-Entire Visit: Accuchecks Date 07/20/20 Time 07:30 Accucheck Value: 91 - Radiology Exams Ordered Rad Exams-Entire Visit: Radiology Procedures Category Date Time Status CHEST 2 VIEWS (PA AND LAT) DAILY Exams 07/20/20 06:00 Completed CHEST 2 VIEWS (PA AND LAT) Stat Exams 07/19/20 18:09 Completed - Procedures and Test Procedures and Tests throughout Hospitalization: Therapy Orders & Screens 07/19/20 19:05 EKG Q8HX2,QAMX3,PRN Comment: 07/19/20 23:15 Oxygen Nasal Cannula 2 lpm Comment: Diagnosis: chest pain 07/20/20 01:14 EKG ROUTINE Comment: Diagnosis: chest pain 07/21/20 05:00 EKG DAILY Comment: Diagnosis: chest pain 07/22/20 05:00 EKG DAILY Comment: Diagnosis: chest pain 07/23/20 05:00 EKG DAILY Comment: Diagnosis: chest pain - Discharge Discharge Date: 07/20/20 Disposition: Home, Self-Care Condition: Stable Prescriptions: No Action Albuterol Sulfate [Ventolin Hfa] 2 puffs IH Q4H PRN PRN PRN Reason: Shortness Of Breath/Wheezing Triamterene/Hydrochlorothiazid [Triamterene-Hctz 37.5-25 mg Cp] 1 tab PO DAILY Cetirizine HCl [Zyrtec] 1 tab PO DAILY Ondansetron HCl [Zofran] 8 mg PO Q8HPRN PRN PRN Reason: Nausea/Vomiting Insulin Regular, Human [Novolin R] 5 unit IJ BIDAC Sertraline HCl [Zoloft] 200 mg PO DAILY Oxycodone HCl/Acetaminophen [Percocet 7.5-325 mg Tablet] 7.5 each PO Q4HPRN PRN PRN Reason: Pain Tamsulosin HCl 0.4 mg [Flomax 0.4 MG] 0.4 mg PO DAILY Aspirin 81 mg PO DAILY Insulin Glargine,Hum.rec.anlog [Lantus] 70 unit SQ HS Instructions: Heart Healthy Diet, Diabetes Diet Additional Instructions: WHEN YOU FOLLOW UP WITH YOUR PRIMARY CARE DOCTOR AFTER YOU MOVE- LET THEM KNOW YOU WANT HOME HEALTHCARE AND THEY WILL ARRANGE IT FOR YOU.
[2020-07-20 12:26] VITALS: O2SAT 98
[2020-07-20] MEDS ORDERED: CLARITIN 10 MG PO SCH (12:30)
[2020-07-20] MEDS ORDERED: Flomax 0.4 MG PO SCH (12:30)
[2020-07-20] MEDS ORDERED: Maxzide-25MG Tablet PO SCH (12:45)
[2020-07-20] MEDS ORDERED: ZOLOFT 50 MG TABLET PO SCH (12:45)
[2020-07-20 13:12] VITALS: BP 127/53; PULSE 72
[2020-07-20] MEDS ORDERED: HUMULIN R IJ SCH (16:30)
[2020-07-21] MEDS ORDERED: [UNRECOGNIZED DRUG - OTHER] PO SCH (10:00)
[2020-07-21] MEDS ORDERED: NON-FORMULARY ITEM (Sertraline Hcl [Zoloft] 200 MG) PO SCH (10:00)
[2020-07-21] MEDS ORDERED: NON-FORMULARY ITEM (Cetirizine Hcl [Zyrtec] 1 TAB) PO SCH (10:00)
== END 2020-07-20 12:55 | disposition home or self-care (01) ==
LOC: ED 17:11 → MED SURG 21:30
PROVIDERS: ADMIT Family Medicine; ATTEND Family Medicine
DX: R07.9 Chest pain, unspecified (principal); I10 Essential (primary) hypertension; E11.9 Type 2 diabetes mellitus without complications; Z79.899 Other long term (current) drug therapy
CPT/HCPCS: 36000; 36415; 71046; 80048; 80061; 82962; 83721; 83880; 84484; 85025; 85027; 93005; 93041; 93268; 94760; 94762; 99285; G0378; A9270-GY